=== PATIENT | female | born 1945 | race Two or more races ===

== ENCOUNTER 2025-09-14 15:05 | Emergency (ER) | payer OTHER, BC ==
[~2025-09-14] VITALS: Ht 154.9 cm; Wt 66.7 kg
[2025-09-14 15:57] VITALS: BP 166/96; O2SAT 97
[2025-09-14] MEDS ORDERED: PROAIR RESPICL90 MCG IH (16:04)
[2025-09-14] MEDS ORDERED: SINGULAIR10 MG PO (16:07)
[2025-09-14] MEDS ORDERED: CLONAZEPAM2 M1 PO (16:09)
[2025-09-14] MEDS ORDERED: DEXAMETHASONE SODIUM PHOSPHATE 4 MG/ML VIAL IM ONE (16:30)
[2025-09-14] MEDS ORDERED: KETOROLAC TROMETHAMINE 60 MG VIAL IM ONE ×2 (16:30→16:59)
[2025-09-14] MEDS ORDERED: DEXAMETHASONE SODIUM PHOSPHATE 4 MG/ML VIAL ONE (16:59)
[2025-09-14] MEDS ORDERED: ARTHRITIS PAIN50 GM TOP (18:13)
[2025-09-14] MEDS ORDERED: ACETAMINOPHEN500 M2 PO (18:13)
== END 2025-09-14 18:55 | disposition home or self-care (01) ==
LOC: ER 15:06
DX: M25.512 Pain in left shoulder (principal); J45.909 Unspecified asthma, uncomplicated; I10 Essential (primary) hypertension; I38 Endocarditis, valve unspecified; Z88.0 Allergy status to penicillin; Z91.048 Other nonmedicinal substance allergy status; M25.562 Pain in left knee; M79.672 Pain in left foot; W18.39XA Other fall on same level, initial encounter; Y93.89 Activity, other specified; Y92.413 State road as the place of occurrence of the external cause
CPT/HCPCS: 73030; 73090; 73560; 73590; 96372; 99283; J1100; J1885